=== PATIENT | female | born 1975 ===

== ENCOUNTER 2018-12-27 13:05 | Emergency (ER) | payer OTHER ==
[~2018-12-27] VITALS: Ht 175.3 cm; Wt 103.9 kg
[2018-12-27 13:47] VITALS: BP 145/96
[2018-12-27] MEDS ORDERED: HYDROcodone-ACET 10/325MG TAB PO ONE (14:15)
[2018-12-27] MEDS ORDERED: PENICILLIN V POTASSIUM 250 MG TAB PO ONE (14:15)
[2018-12-27] MEDS ORDERED: CEPHALEXIN 250 MG CAP PO ONE (14:30)
== END 2018-12-27 15:42 | disposition home or self-care (01) ==
LOC: ER 13:11
DX: K02.9 Dental caries, unspecified (principal); J45.909 Unspecified asthma, uncomplicated; F17.210 Nicotine dependence, cigarettes, uncomplicated

== ENCOUNTER 2024-01-02 16:16 | Emergency (ER) | payer OTHER ==
[~2024-01-02] VITALS: Ht 170.2 cm; Wt 136.3 kg
[2024-01-02] MEDS: LORazepam 2MG/ML-1ML VIAL ONE (16:31)
[2024-01-02] MEDS: diphenhdrAMINE HCL 50 MG/1 ML VL ONE (16:32)
[2024-01-02] MEDS: HALOPERIDOL LACTATE 5 MG/ML INJ VIAL ONE (16:32)
[2024-01-02] MEDS: HALOPERIDOL LACTATE 5 MG/ML INJ VIAL IM ONE ×2 (16:36→16:57)
[2024-01-02] MEDS: diphenhdrAMINE HCL 50 MG/1 ML VL IM ONE (16:37)
[2024-01-02] MEDS: LORazepam 2MG/ML-1ML VIAL IM ONE (16:37)
[2024-01-02] MEDS: SODIUM CHLORIDE 0.9% 1,000 ML IV ONE (16:45)
[2024-01-02] MEDS ORDERED: HALOPERIDOL LACTATE 5 MG/ML INJ VIAL IM ONE (17:00)
[2024-01-02 19:34] LABS: Basophils # (auto) 0 10 ^3/uL (0-0.2); Basophils % (auto) 0.4 % (0.0-2.0); Eosinophils # (auto) 0 10 ^3/uL (0-0.8); Eosinophils % (auto) 0.1 % (0.0-7.0); Hematocrit 48.8 % (36.0-46.0); Hemoglobin 15.3 g/dL (12.2-16.2); Lymphocytes # (auto) 1.6 10 ^3/uL (0.4-5.4); Lymphocytes % (auto) 12.9 % (10.0-50.0); Mean Corpuscular Hemoglobin 27.8 pg (28.0-32.0); Mean Corpuscular Hgb Conc. 31.4 g/dL (32.0-36.0); Mean Corpuscular Volume 88.5 fL (80.0-100.0); Monocytes # (auto) 0.7 10 ^3/uL (0-1.3); Monocytes % (auto) 5.4 % (0.0-12.0); Neutrophils # (auto) 9.8 10 ^3/uL (1.6-8.6); Neutrophils % (auto) 81.2 % (37.0-80.0); Nucleated Red Blood Cells % 0.2 %; Platelet Count (auto) 241 10^3/uL (140-450); Red Blood Cells 5.52 10^6/uL (4.0-5.20); Red Cell Distribution Width 14.3 % (11.8-14.3); White Blood Cell 12.1 10^3/uL (4.4-10.8)
[2024-01-02 19:46] LABS: Alanine Aminotransferase 21 U/L (7-40); Albumin 4.6 g/dL (3.2-4.8); Alkaline Phosphatase 114 U/L (46-116); Anion Gap 5 (5-15); Aspartate Aminotransferase 21 U/L (13-40); BUN/Creatinine Ratio 9.3 (10.0-20.0); Bilirubin, Total 0.4 mg/dL (0.2-1.0); Blood Urea Nitrogen 11 mg/dL (9-23); Carbon Dioxide 21 mmol/L (20-31); Chloride 111 mmol/L (98-107); Glucose 94 mg/dL (74-106); Potassium 4.2 mmol/L (3.5-5.1); Sodium 137 mmol/L (136-145)
[2024-01-02 22:45] LABS: Urine Bacteria None Seen /hpf (None Seen)
[2024-01-02 22:53] VITALS: PULSE 85; RESP 20; O2SAT 97
[2024-01-02 22:54] LABS: Urine Blood TRACE /uL (Negative); Urine Clarity Turbid (Clear); Urine Color Yellow (Yellow); Urine Hyaline Cast FEW /lpf (0 - 2); Urine Mucus FEW (None Seen); Urine Protein, UAD 1+ (Negative); Urine Specific Gravity 1.024 (1.001-1.035); Urine Urobilinogen Normal (Negative); Urine WBC 21 /hpf (0 - 5); Urine pH 5.5 (5.0-9.0)
[2024-01-02 23:04] LABS: Amphetamine Screen, Urine Pos (NEGATIVE); Barbiturate Scree,Urine Neg (NEGATIVE); Benzodiazephine Screen, Urine Neg (NEGATIVE); Cannabinoid Screen, Urine Pos (NEGATIVE); Cocaine Screen, Urine Neg (NEGATIVE); Opiate Scree,Urine Neg (NEGATIVE); Phencyclidine Screen, Urine Neg (NEGATIVE)
[2024-01-03] MEDS ORDERED: cefTRIAXone 1GM/50ML D5W 50 ML IV ONE (00:15)
[2024-01-03] MEDS ORDERED: cefTRIAXone W LIDOCAINE 1 GM IM IM ONE (00:45)
[2024-01-03] MEDS: cefTRIAXone SOD 1,000 MG VL IM ONE (00:58)
[2024-01-03] MEDS ORDERED: BACDST PO (02:09)
[2024-01-03 06:00] VITALS: TEMP 97.7
[2024-01-03 08:28] VITALS: BP 145/94; PULSE 90; RESP 14; O2SAT 97
== END 2024-01-03 11:13 | disposition home or self-care (01) ==
LOC: EDBD 16:16 → ER 16:16
DX: F15.10 Other stimulant abuse, uncomplicated (principal); N39.0 Urinary tract infection, site not specified; F17.210 Nicotine dependence, cigarettes, uncomplicated; I10 Essential (primary) hypertension; J45.909 Unspecified asthma, uncomplicated; R41.82 Altered mental status, unspecified; F12.10 Cannabis abuse, uncomplicated; F19.959 Other psychoactive substance use, unspecified with psychoactive substance-induced psychotic disorder, unspecified; Z79.899 Other long term (current) drug therapy
CPT/HCPCS: 36415; 80053; 80307; 81001; 85025; 96372; 99285; J0696; J1200; J1630; J2060